=== PATIENT | female | born 1965 | race Caucasian/White ===

== ENCOUNTER 2024-04-29 07:29 | Day surgery (SDC) | payer BC, SELFPAY ==
[2024-04-23 15:46] VITALS: BMI 25.1
[2024-04-29 08:07] VITALS: BP 124/74; PULSE 64; RESP 18; TEMP 36.1; O2SAT 93
[2024-04-29] MEDS: LACTATED RINGERS 1000ML 1,000 ML 25 ML IV (08:21)
--- NOTE | 2024-04-29 08:30 | P.PNANES_ITS ---
[facility] Disclaimer: The information contained in this section may have been updated after the patient was seen, as this information can be updated by other users. Medical History Hepatic calcification Hypothyroid Surgical History History of surgery Family History Other No significant family history Social History (Updated 04/29/24 @ 08:08 by Rosario Crouch RN) Smoking Status: Never smoker alcohol intake: current substance use type: denies use current occupational status: retired caffeine: Yes [facility] Anesthesia Checklist Patient Identification Patient Identification: Verbal (Name & ) Structural Data Admitted From: Home Planned Operative Procedure/s: colonoscopy Consent for Planned Operative Procedure(s) Verified: Yes NPO Status Verified Time NPO: 00:00 Airway Assessment Mallampati Score:: Class II C-Spine Mobility Assessed: Yes TMJ Mobility Assessed: Yes Dentition: Good Dentition Neurological Assessment Level of Consciousness: Awake, Alert and Appropriate Anesthesia Plan Anesthesia Risk discussed: Yes Anesthesia Plan: Verified ASA Class: II Anesthesia Type: MAC
--- NOTE | 2024-04-29 09:23 | EXP.HP ---
History of Present Illness *Admission Date: 04/29/24 *History of present illness: Mrs. Romero is a 59-year-old female who is here for surveillance colonoscopy secondary to a personal history of adenomatous polyps. The examination is deemed medically necessary for surveillance colonoscopy. The patient has been seen, interviewed and examined prior to the procedure by both myself and the anesthesia provider. [facility] Disclaimer: The information contained in this section may have been updated after the patient was seen, as this information can be updated by other users. Medical History (Updated 04/29/24 @ 09:37 by Reji Aquino II, MD) Hepatic calcification Hypothyroid Surgical History History of surgery Family History Other No significant family history Social History (Updated 04/29/24 @ 08:31 by Josh Weeks CRNA) Smoking Status: Never smoker alcohol intake: current substance use type: denies use current occupational status: retired Travel in the last 8 weeks: None caffeine: Yes Review of Systems Review of Systems Review of systems (narrative): Negative *Cardiovascular Comments: Negative *Gastrointestinal Comments: Negative *Genitourinary Comments: Negative *Musculoskeletal Comments: Negative *Neurologic Comments: Negative Meds Home Medications and Allergies Home Medications ?Medication ?Instructions ?Recorded ?Confirmed ?Type [id number] 140 gram-sod sulfate 9 See Rx Instructions PO .COMPLEX #3 04/18/24 Rx gram-NaCl 5.2gram-KCl-C oral pwdr ea packs (Plenvu) sodium,potassium,mag sulfates 17.5 See Rx Instructions PO .COMPLEX 04/22/24 Rx gram-3.13 gram-1.6 gram oral soln #354 mL (Suprep Bowel Prep Kit) levothyroxine 75 mcg tablet 75 mcg PO DAILY 04/23/24 04/29/24 History (Synthroid) citalopram 10 mg tablet 10 mg PO DAILY 04/29/24 04/29/24 History New Prescriptions to Start Prescriptions: Allergies Allergy/AdvReac Type Severity Reaction Status Date / Time No Known Allergies Allergy Verified 04/29/24 08:05 Exam Data for Last 24 hours Vital signs and Labs for Last 24 Hours: Temp Pulse Resp BP Pulse Ox O2 Del Method 97.0 F L 64 18 124/74 93 L Room Air 04/29/24 08:07 04/29/24 08:07 04/29/24 08:07 04/29/24 08:07 04/29/24 08:07 04/29/24 08:07 *Routine HEENT Exam Head: Present normocephalic Eye: Present EOMI and PERRL ENT: Present mucous membranes moist *Routine Neck Exam Neck: Present supple *Routine Respiratory Exam Respiratory: Present CTA bilaterally *Routine Cardiovascular Exam Cardiovascular: Present RRR *Routine Abdominal Exam Abdominal: Present soft and normoactive bowel sounds; Absent tenderness *Routine Rectal Exam Rectal:: deferred *Routine Genitalia Exam Genitalia:: deferred *Routine Extremities Exam Extremities: Absent cyanosis, clubbing or edema *Routine Skin Exam Skin: Present warm; Absent rash *Routine Neurological Exam Neurological: Present alert and oriented X3 Assessment and Plan *Assessment and plan (1) Personal history of adenomatous and serrated colon polyps: Status: Acute Category: Medical Code(s): Z86.0101 - Personal history of adenomatous and serrated colon polyps Plan A/P: 1. Personal history of adenomatous colon polyps is the preprocedural diagnosis. The patient will be anesthetized/sedated using MAC sedation. The patient has been seen and examined. Cardiac and lung assessment prior to the examination is stable. Proceed with planned surveillance colonoscopy
[2024-04-29 09:29] VITALS: O2SAT 100
--- NOTE | 2024-04-29 09:37 | HMH.PROCNOTE ---
[facility] Procedure Note Date: 04/29/24 Time: 09:58 Procedure Note:: Colonoscopy Procedure Report: Colonoscopy with cold snare polypectomy Endoscopist: Reji Aquino II, MD Referring physician: [address] [place], [place] [address] Date of Procedure: April 29, 2024 Equipment: Olympus 190 variable stiffness pediatric colonoscope Sedation: MAC sedation Indication: Mrs. Romero is a 59-year-old female who is here for follow-up surveillance colonoscopy secondary to a personal history of adenomatous colon polyps. The patient has had several adenomatous polyps removed and her last colonoscopy was 4 years ago (2020). She does report regular bowel function but does have occasional incomplete bowel evacuation. She has been on Ozempic. Her father had Crohn's disease with small bowel resection. She reports no abdominal pain, rectal bleeding or family history of colon cancer. The patient has had a couple of bouts of thrush and most recently took fluconazole. Her initial bout was preceded by use of corticosteroids but her second bout she had not been on antibiotics or corticosteroids. She is not on PPI therapy. Procedure: Prior to the procedure, a history and physical exam was performed, and patient's medications and allergies were reviewed. The risks, benefits and alternatives of the sedation and procedure were discussed with the patient. All questions were answered and informed consent was obtained. The patient was brought to the procedure room. Patient identification and proposed procedure were verified by the physician and the nurse. The patient was placed in a left lateral decubitus position and the scope was passed under direct vision. Throughout the procedure, the patient's blood pressure, pulse, and oxygen saturations were monitored continuously. The colonoscopy was accomplished without difficulty. The patient tolerated the procedure well. Findings: On digital rectal examination there was normal rectal tone. There were no external hemorrhoids. The colonoscope was introduced through the anal canal to the rectum and advanced to the cecum. The ileocecal valve and appendiceal orifice were identified. The scope was advanced a short distance into the ileum which appeared grossly normal. The scope was then withdrawn into the colon. There was a single 3 to 4 mm transverse polyp that was removed via cold snare polypectomy. The remaining cecum, ascending and transverse colon and mucosa were grossly normal. There were a few scattered diverticuli throughout the descending and sigmoid colon (LEFT colon). The rectum itself was normal. Upon retroflexion within the rectum there were grade 1 internal hemorrhoids. The preparation was excellent throughout with [place] Preparation Score of 9. The cecal time was 12 minutes. Impression: 1. Diminutive transverse colon polyp 2. Mild left-sided diverticulosis 3. Grade 1 internal hemorrhoids Plan: I will follow-up the polyp histology and recommend repeat surveillance colonoscopy again in 7 years. I would encourage psyllium fiber supplementation on a maintenance basis. Dry mouth/xerostomia is a risk factor for recurrent thrush. The patient is not immunocompromised and not on corticosteroids or antibiotics. She does not have dentures.
[2024-04-29 09:59] VITALS: BP 97/62; PULSE 64; RESP 18; TEMP 36.6; O2SAT 97
[2024-04-29 10:09] VITALS: BP 105/67; PULSE 55; RESP 18; O2SAT 99
[2024-04-29 10:19] VITALS: BP 101/68; PULSE 60; RESP 18; O2SAT 98
[2024-04-29 11:00] VITALS: BP 104/75; PULSE 60; RESP 18; O2SAT 98
== END 2024-04-29 11:00 | disposition home or self-care (01) ==
PROVIDERS: Visit Provider Internal Medicine Gastroenterology
PROC: (CPT 45385; principal; 2024-04-29 09:30)
DX: K63.5 Polyp of colon; K57.30 Diverticulosis of large intestine without perforation or abscess without bleeding; K64.0 First degree hemorrhoids; Z86.0101 Personal history of adenomatous and serrated colon polyps; Z09 Encounter for follow-up examination after completed treatment for conditions other than malignant neoplasm
CPT/HCPCS: 45385; J7120